=== PATIENT | male | born 1935 | race Caucasian/White ===

== ENCOUNTER 2019-11-27 01:30 | Emergency (ER) | payer OTHER, BC ==
[2019-11-27 02:44] VITALS: BP 123/81; PULSE 78; TEMP 98.3; BMI 21.8
--- NOTE | 2019-11-27 02:50 | PDOC ---
Attending Attestation - Resident Resident Name: Amando Vivar - ED Attending Attestation I have performed the following: I have examined & evaluated the patient, The case was reviewed & discussed with the resident, I agree w/resident's findings & plan, Exceptions are as noted - HPI HPI: 11/27/19 02:45 84 yo male h/o prior cva, afib on eliquis, HLD, HTN, s/p mohs procedure today bilat ear with bleeding through dressing. started this evening. no dizziness. no cp no sob. no mod factors. did not stop his eliquis for his surgery. rn wound care DR Devi - Physicial Exam PE: 11/27/19 02:47 awake alert left ear with soaked blood dressing, oozing. dressing removed. sutures in tact. oozing from central incision. and all sutures. lungs clear bilat heart irreg reg no mrg. - Medical Decision Making 11/27/19 02:48 84 yo afib htn prior cva on eliquis s/p mohs left ear. plan surgicel placed over wound. pressure dressing created with inner auricle and posterior auricle pressure to prevent hematoma accumulation. used savage wrap for pressure instead of tape to secure dressing. tolerated. will observe for pain. and recurrent bleeding. given tylenol po.
[2019-11-27] MEDS ORDERED: ACETAMINOPHEN 325 MG TABLET (FP) PO ONE (03:12)
[2019-11-27] MEDS ORDERED: ACETAMINOPHEN 325 MG TABLET (FP) ONE (03:15)
--- NOTE | 2019-11-27 03:29 | PDOC ---
History of Present Illness - General Chief Complaint: Ear Problem Stated Complaint: BLEEDING BOTH EARS Time Seen by Provider: 11/27/19 01:54 History Source: Patient Exam Limitations: No Limitations - History of Present Illness Initial Comments: 11/27/19 03:23 84 yo M with a hx of CVA (2xepisodes; last episode 2018), HTN, atrial fibrillation (currently on eliquis), and HLD presents to the emergency department with bleeding from the left ear. Per the patient, he had a Mohs surgery by Dr. Thomas at [facility] yesterday for removal of basal cell carcinoma. The surgery occurred on both ears. The patient awoke from sleep at approximately 12 am with spontaneous bleeding from the bandages on the left ear without pain. The patient stated the episode lasted for approximately 15 minutes. Denies lightheadedness, dizziness, headache, chest pain, SOB, palpitations, nausea, vomiting, and visual disturbance. Allergies: NDKA Past History - Past Medical History Allergies/Adverse Reactions: Allergies Allergy/AdvReac Type Severity Reaction Status Date / Time No Known Allergies Allergy Verified 11/27/19 01:39 Cardiac Disorders: Yes (A-FIB) CVA: Yes COPD: No HTN: Yes Hypercholesterolemia: Yes Liver Disease: Yes (HEP C) - Psycho Social/Smoking Cessation Hx Smoking History: Never smoked Review of Systems - Review of Systems Able to Perform ROS?: Yes Is the patient limited Palauan proficient: No Constitutional: No: Chills, Diaphoresis, Fever, Weakness HEENTM: Yes: Ear Pain (left side). No: Eye Pain, Nose Pain, Throat Pain, Mouth Pain Respiratory: No: Cough, Shortness of Breath, Hemoptysis Cardiac (ROS): No: Chest Pain, Lightheadedness, Palpitations, Chest Tightness ABD/GI: No: Constipated, Diarrhea, Nausea, Rectal Bleeding, Vomiting, Tarry Stools : No: Burning Musculoskeletal: No: Back Pain Integumentary: No: Bruising, Erythema Neurological: No: Headache, Tingling Psychiatric: No: Change in Appetite Endocrine: No: Unexplained Weight Loss Hematologic/Lymphatic: No: Anemia *Physical Exam - Vital Signs Last Vital Signs Temp Pulse Resp BP Pulse Ox 98.3 F 78 18 123/81 97 11/27/19 01:37 11/27/19 01:37 11/27/19 01:37 11/27/19 01:37 11/27/19 01:37 - Physical Exam General Appearance: Yes: Nourished, Appropriately Dressed. No: Apparent Distress, Intoxicated HEENT: positive: EOMI, DEXTER, Normal Voice, Symmetrical, Pharynx Normal, Other ( bandages noted on ears bilaterally. left ear has multiple stitches with oozing through the sutures which are intact. ) Neck: positive: Trachea midline, Supple. negative: Tender, Lymphadenopathy (R) , Lymphadenopathy (L), Tender lateral, Tender midline Respiratory/Chest: positive: Lungs Clear, Normal Breath Sounds. negative: Chest Tender, Respiratory Distress, Accessory Muscle Use, Crackles, Rales, Rhonchi, Stridor, Wheezing Cardiovascular: positive: Regular Rhythm, Regular Rate, S1, S2. negative: Systolic Murmur Gastrointestinal/Abdominal: positive: Normal Bowel Sounds, Flat, Soft. negative : Tender, Distended, Guarding, Rebound Lymphatic: negative: Adenopathy Musculoskeletal: positive: Normal Inspection. negative: CVA Tenderness, Vertebral Tenderness Extremity: positive: Normal Capillary Refill, Normal Inspection, Normal Range of Motion. negative: Tender Integumentary: positive: Normal Color, Dry, Warm. negative: Swelling, Ecchymosis Neurologic: positive: Alert, Normal Mood/Affect ED Treatment Course - Medications Given in the ED: ED Medications Discontinued Medications Generic Name Dose Route Start Last Admin Trade Name Freq PRN Reason Stop Dose Admin Acetaminophen 975 mg 11/27/19 03:12 11/27/19 03:19 Tylenol - PO 11/27/19 03:13 975 mg ONCE ONE Administration Medical Decision Making - Medical Decision Making 11/27/19 06:41 84 yo M with a hx of CVA (2xepisodes; last episode 2018), HTN, atrial fibrillation (currently on eliquis), and HLD presents to the emergency department with bleeding from the left ear. Initial vitals: Initial Vital Signs Temp Pulse Resp BP Pulse Ox 98.3 F 78 18 123/81 97 11/27/19 01:37 11/27/19 01:37 11/27/19 01:37 11/27/19 01:37 11/27/19 01:37 Work up: patient's left ear dressings removed. oozing noted from the sutures on the left ear. surgicell was placed on and tamponade was achieved with gauze. Patient had gauze held with savage bandage. A call was placed to Dr. Thomas's office; awaiting call back Patient's family wishes to leave. Patient had continued homeostasis and is stable for discharge. Discharge - Discharge Information Problems reviewed: Yes Clinical Impression/Diagnosis: Bleeding from left ear Condition: Stable Disposition: HOME - Admission No - Follow up/Referral Referrals: [facility] [Primary Care Provider] - - Patient Discharge Instructions Additional Instructions: You were seen in the emergency department for the evaluation of your ear bleeding. Please follow up with Dr. Thomas this morning as soon as their office opens for further evaluation. Please return to the emergency department if you have worsening symptoms or new concerning symptoms. Thank you. - Post Discharge Activity
== END 2019-11-27 03:56 | disposition home or self-care (01) ==
LOC: JER 01:30
DX: L76.22 Postprocedural hemorrhage of skin and subcutaneous tissue following other procedure (principal); I10 Essential (primary) hypertension; I48.91 Unspecified atrial fibrillation; Z79.01 Long term (current) use of anticoagulants; E78.5 Hyperlipidemia, unspecified
CPT/HCPCS: 99283-25